=== PATIENT | male | born 1965 | race African-American/Black ===

== ENCOUNTER 2024-01-26 20:57 | Emergency (ER) | payer MEDICAID ==
[~2024-01-26] VITALS: Ht 177.8 cm; Wt 110.0 kg
[2024-01-26 21:27] VITALS: O2SAT 97
[2024-01-27 01:00] LABS: BASOPHILS % 1.1 % (0.0-2.0); EOSINOPHILS % 7.5 % (0.0-5.0); HEMATOCRIT. 38.9 % (42.0-52.0); LYMPHOCYTES % 12.9 % (20.0-50.0); MEAN CORPUSCULAR HEMOGLOBIN 31.1 pg (28.0-32.0); MEAN CORPUSCULAR HGB CONC 33.3 g/dL (31.0-37.0); MEAN CORPUSCULAR VOLUME 93.4 fL (80.0-94.0); MEAN PLATELET VOLUME 7.7 fl (7.4-10.4); NEUTROPHILS % 64.5 % (40.0-76.0); PLATELET 200 x1000/uL (130-400); RED BLOOD CELL COUNT 4.16 mill/uL (4.7-6.1); RED CELL DISTRIBUTION WIDTH 14.8 % (11.6-14.6); WHITE BLOOD COUNT 4.5 x1000/uL (4.5-11.0)
[2024-01-27 01:09] LABS: CHLORIDE 104 mEq/L (98-107); POTASSIUM 4.1 mEq/L (3.5-5.1); SODIUM 139 mEq/L (136-145)
[2024-01-27 01:10] LABS: CARBON DIOXIDE 30 mEq/L (21-32)
[2024-01-27 01:15] LABS: CREATININE 1.4 mg/dL (0.6-1.3); GLUCOSE 104 mg/dL (70-105); UREA NITROGEN BLOOD 18 mg/dL (9-23)
[2024-01-27 01:16] LABS: ETHANOL BLOOD < 10 mg/dL (<10)
[2024-01-27 01:17] LABS: ACETAMINOPHEN < 2 ug/mL (10-30)
[2024-01-27 04:24] LABS: *AMPHETAMINES SCREEN URINE NEGATIVE (NEGATIVE); *BENZODIAZEPINES SCREEN URINE PRESUMPTIVE POSITIVE (NEGATIVE)
[2024-01-27 04:25] LABS: *BARBITURATES SCREEN URINE NEGATIVE (NEGATIVE); *COCAINE SCREEN URINE NEGATIVE (NEGATIVE); CANNABINOID URINE SCREEN NEGATIVE (NEGATIVE); ECSTASY MDMA SCREEN URINE NEGATIVE (NEGATIVE); METHADONE URINE SCREEN NEGATIVE (NEGATIVE); OPIATES URINE SCREEN NEGATIVE (NEGATIVE); PHENCYCLIDINE URINE SCREEN NEGATIVE (NEGATIVE)
[2024-01-27 15:25] VITALS: BP 132/78; PULSE 85; RESP 18; TEMP 97.9
[2024-01-27] MEDS: OLANZAPINE 5MG TABLET ODT PO SCH (15:30)
== END 2024-01-27 16:45 ==
LOC: ER 20:57
DX: R45.851 Suicidal ideations (principal); R44.1 Visual hallucinations; Z85.9 Personal history of malignant neoplasm, unspecified; Z20.822 Contact with and (suspected) exposure to COVID-19
CPT/HCPCS: 36415; 80048; 80305; 80307; 80320; 80329; 85025; 87426; 93005; 99285; G0480